=== PATIENT | male | born 1960 | race Caucasian/White ===

== ENCOUNTER → 2023-12-31 06:31 | Outpatient (REF) | payer BC, SELFPAY ==
[2023-12-31 07:43] LABS: ALT (SGPT) 23 U/L (0-50); AST (SGOT) 20 U/L (17-59); Albumin 4.2 g/dl (3.5-5.0); Alkaline Phosphatase 81 U/L (38-126); Blood Urea Nitrogen 20 mg/dl (9-20); Calcium 9.2 mg/dl (8.4-10.2); Carbon Dioxide 24 mmol/L (22-30); Chloride 108 mmol/L (98-107); Glucose 140 mg/dl (70-99); HDL Cholesterol 50 mg/dl; LDL Cholesterol, Calculated 71 mg/dl; Potassium 4.1 mmol/L (3.5-5.1); Sodium 138 mmol/L (135-145); Total Bilirubin 0.5 mg/dl (0.2-1.3); Total Cholesterol 144 mg/dl (50-199); Total Protein 7.1 g/dl (6.3-8.2); Triglyceride 115 mg/dl (10-149); Very Low Density Lipoprotein 23 mg/dl (0-30); eGFR > 60.00
[2023-12-31 07:53] LABS: Microalbumin, Random Urine 3.2 mg/dl (0.6-1.7)
[2023-12-31 09:27] LABS: Glycohemoglobin (HgbA1c) 7.5 % (4.0-5.6)
[2023-12-31 17:08] LABS: PSA, Total - Screen 5.68 ng/ml (0.0-4.0)
[2023-12-31 17:10] LABS: TSH 2.99 uIU/ml (0.47-4.68)
== END ==
LOC: REG 06:31
PROVIDERS: ATTENDING PHYSICIAN Family Medicine
DX: I25.10 Atherosclerotic heart disease of native coronary artery without angina pectoris (principal); I10 Essential (primary) hypertension; F98.8 Other specified behavioral and emotional disorders with onset usually occurring in childhood and adolescence; F51.01 Primary insomnia; G47.33 Obstructive sleep apnea (adult) (pediatric); Z99.89 Dependence on other enabling machines and devices; F13.20 Sedative, hypnotic or anxiolytic dependence, uncomplicated; F32.0 Major depressive disorder, single episode, mild; E11.69 Type 2 diabetes mellitus with other specified complication; E78.5 Hyperlipidemia, unspecified
CPT/HCPCS: 36415; 80053; 80061; 82043; 82570; 83036; 84443; G0103

== ENCOUNTER → 2024-01-10 06:52 | Outpatient (REF) | payer BC, SELFPAY | LOC: RAD 06:52 | PROVIDERS: ATTENDING PHYSICIAN Family Medicine | DX: R91.1 Solitary pulmonary nodule (principal) | CPT/HCPCS: 71250 ==

== ENCOUNTER → 2024-02-03 16:11 | Outpatient (REF) | payer BC, SELFPAY ==
[2024-02-03 20:05] LABS: PSA, Total - Screen 7.62 ng/ml (0.0-4.0)
== END ==
LOC: CLAB 16:11
PROVIDERS: ATTENDING PHYSICIAN Family Medicine
DX: R97.20 Elevated prostate specific antigen [PSA] (principal)
CPT/HCPCS: G0103

== ENCOUNTER → 2024-06-20 11:53 | Outpatient (REF) | payer BC, SELFPAY | LOC: MRI 3T 11:53 | PROVIDERS: ATTENDING PHYSICIAN Specialist; FAMILY PHYSICIAN Family Medicine | DX: R97.20 Elevated prostate specific antigen [PSA] (principal) | CPT/HCPCS: 72197; A9575 ==

== ENCOUNTER → 2024-06-27 16:47 | Outpatient (REF) | payer BC, SELFPAY | LOC: CLAB 16:47 | PROVIDERS: ATTENDING PHYSICIAN Specialist | DX: R97.20 Elevated prostate specific antigen [PSA] (principal) | CPT/HCPCS: 88305; 88344 ==

== ENCOUNTER 2024-07-26 06:10 | Day surgery (SDC) | payer BC, SELFPAY ==
[2024-07-17 08:46] LABS: Hematocrit 47.6 % (39.0-52.0); Hemoglobin 16.3 g/dL (13.0-18.0); Mean Corp Hgb Conc. 34.2 g/dL (33.0-37.0); Mean Corpuscular Hgb 30.1 pg (27.0-31.0); Mean Corpuscular Volume 87.8 fL (80.0-94.0); Platelet Count 258 10^3/uL (130-400); Red Blood Cell Count 5.42 10^6/uL (4.70-6.10); Red Cell Dist. Width 13.2 % (11.5-14.5)
[2024-07-17 08:54] LABS: INR 1.07; PT 13.7 Sec (11.4-14.6)
[2024-07-17 08:55] LABS: APTT 29.7 Sec (23.4-35.0)
[2024-07-17 09:12] LABS: Blood Urea Nitrogen 23 mg/dl (9-20); Calcium 9.4 mg/dl (8.4-10.2); Carbon Dioxide 26 mmol/L (22-30); Chloride 104 mmol/L (98-107); Glucose 120 mg/dl (70-99); Potassium 4.2 mmol/L (3.5-5.1); Sodium 143 mmol/L (135-145); eGFR > 60.00
[2024-07-17 09:43] VITALS: BMI 30.7
--- NOTE | 2024-07-17 16:10 | VNURNOTE ---
Patient is scheduled for robotic prostatectomy with Dr Good on 07/26. SDS, will stay overnight per patient. Mr. Clarke lives with his and has 2 dogs. Reviewed homebound status and pet policy. Patient verbalizes understanding. He reports
he has had a witt catheter in the past but it was removed prior to going home when he had cardiac surgery. Explained [facility] purpose, frequency. Patient selects [facility]. Referral placed in [facility].
[2024-07-26] VITALS (14 sets, daily range): BP systolic 105–149; BP diastolic 51–86; BMI 30.7
[2024-07-26 06:55] LABS: Glucose - Point of Care 165 mg/dl (70-99)
[2024-07-26] MEDS: NEOMYCIN ENEMA 1 BOTTLE RECTAL (06:55)
[2024-07-26] MEDS: NORMOSOL-R/PLASMALYTE-A 1000 IV ×2 (06:58→14:51)
[2024-07-26] MEDS: TYLENOL 1000 MG PO (07:12)
[2024-07-26 13:04] LABS: Glucose - Point of Care 186 mg/dl (70-99)
[2024-07-26] MEDS: NOVOLOG vial 1 UNITS SC (13:27)
--- NOTE | 2024-07-26 14:52 | PTCARENOTE ---
Pt arrived to [facility] from PACU s/p carla. prostatectomy. Pt has 5 incision sites, dressings C/D/I. Alston in place draining red punch colored urine. On 2L NC satting 97%. IVF infusing at 100mls/hr. Pt oriented to call vines and room, bed locked in
lowest position, call vines within reach.
[2024-07-26] MEDS: NOVOLOG FLEXPEN-LOW RESISTANCE SC (15:15)
[2024-07-26] MEDS: HYZAAR 100-12.5 TABLET PO (15:15)
[2024-07-26] MEDS: COLACE PO (15:15)
[2024-07-26] MEDS: POLYSPORIN/DOUBLE ANTIBIOTIC TOPICAL (15:15)
[2024-07-26] MEDS: MORPHINE SULFATE 4 MG IV ×2 (15:25→19:23)
[2024-07-26] MEDS: COLACE 100 MG PO (17:08)
[2024-07-26] MEDS: CYMBALTA DELAYED RELEASE 30 MG PO (17:08)
[2024-07-26] MEDS: ASPIRIN 325 MG PO (17:08)
[2024-07-26] MEDS: CRESTOR 40 MG PO (17:09)
[2024-07-26] MEDS: FARXIGA 10 MG PO (17:10)
[2024-07-26] MEDS: TORADOL 15 MG IV (17:10)
[2024-07-26 17:19] LABS: Glucose - Point of Care 171 mg/dl (70-99)
[2024-07-26] MEDS: NOVOLOG FLEXPEN-LOW RESISTANCE 1 UNITS SC (18:22)
[2024-07-26] MEDS: POLYSPORIN/DOUBLE ANTIBIOTIC 1 APPLIC TOPICAL (20:50)
[2024-07-26 22:24] LABS: Glucose - Point of Care 158 mg/dl (70-99)
[2024-07-26] MEDS: AMBIEN 10 MG PO (22:55)
[2024-07-27] MEDS: NORMOSOL-R/PLASMALYTE-A 1000 IV (00:01)
[2024-07-27] MEDS: TORADOL 15 MG IV ×2 (00:02→06:47)
[2024-07-27 04:00] VITALS: BP 146/81
[2024-07-27 06:26] LABS: Hematocrit 39.7 % (39.0-52.0); Hemoglobin 13.7 g/dL (13.0-18.0); Mean Corp Hgb Conc. 34.5 g/dL (33.0-37.0); Mean Corpuscular Hgb 29.5 pg (27.0-31.0); Mean Corpuscular Volume 85.4 fL (80.0-94.0); Mean Platelet Volume 10.2 fL (7.4-10.4); Platelet Count 259 10^3/uL (130-400); Red Blood Cell Count 4.65 10^6/uL (4.70-6.10); Red Cell Dist. Width 13.2 % (11.5-14.5); White Blood Cell Count 15.6 10^3/uL (4.8-10.8)
[2024-07-27 06:31] LABS: Blood Urea Nitrogen 19 mg/dl (9-20); Calcium 8.1 mg/dl (8.4-10.2); Carbon Dioxide 23 mmol/L (22-30); Chloride 103 mmol/L (98-107); Estimated Creatinine Clearance > 125 ml/min; Glucose 123 mg/dl (70-99); Potassium 3.9 mmol/L (3.5-5.1); Sodium 137 mmol/L (135-145); eGFR > 60.00
[2024-07-27 08:00] VITALS: BP 131/72
[2024-07-27] MEDS: ASPIRIN 325 MG PO (08:31)
[2024-07-27] MEDS: ZETIA 10 MG PO (08:32)
[2024-07-27] MEDS: NORVASC 10 MG PO (08:32)
[2024-07-27] MEDS: HYZAAR 100-12.5 TABLET 1 TAB PO (08:32)
[2024-07-27] MEDS: COLACE 100 MG PO (08:34)
[2024-07-27] MEDS: POLYSPORIN/DOUBLE ANTIBIOTIC 1 APPLIC TOPICAL (08:34)
[2024-07-27] MEDS: NOVOLOG FLEXPEN-LOW RESISTANCE 1 UNITS SC (08:35)
[2024-07-27 08:36] LABS: Glucose - Point of Care 176 mg/dl (70-99)
[2024-07-27] MEDS: COREG 12.5 MG PO (08:41)
[2024-07-27] MEDS: PERCOCET 5/325 1 TABLET PO (09:33)
--- NOTE | 2024-07-27 09:35 | W.PN.URO.CBU ---
Today's Communication / Plan
-
discharge
Assessment / Plan
-
stable
Diagnosis
-
Date of Service: July 27, 2024
-
Patient Diagnosis:
prostate cancer s/p robotic radical prostatectomy
Post Op Day: 1
Subjective
-
expected pelvic discomfort
Objective
-
Vital Signs
Temp Pulse Resp BP Pulse Ox
99.2 F 75 18 131/72 95
07/27/24 08:00 07/27/24 08:00 07/27/24 08:00 07/27/24 08:00 07/27/24 08:00
Intake and Output
07/26/24 07/27/24 07/28/24
06:59 06:59 06:59
Intake Total 3370 / 3370
Output Total 2500 / 2500
Balance 870 / 870
Intake:
Oral fluids 1920 / 1920
IV fluids (Total) 1450 / 1450
Normosol 250 / 250
Output:
Urine, Alston 2500 / 2500
Laboratory Results
07/27/24 04:24
07/27/24 04:24
Physical Exam
-
General - well developed, well nourished, no acute distress
Abdomen - soft, non-tender, positive bowel sounds, no distention
Genitalia - Alston with mir urine
Skin - warm & dry with no rash
Neuro - AOx3, no motor deficits
Extremities - no clubbing, no cyanosis, no edema
Dressings - clean, dry, intact
[2024-07-27 11:24] LABS: Glucose - Point of Care 137 mg/dl (70-99)
[2024-07-27] MEDS: NOVOLOG FLEXPEN-LOW RESISTANCE SC (11:24)
[2024-07-27 11:51] VITALS: BP 123/70
--- NOTE | 2024-07-27 12:39 | CM ---
Met with patient at the bedside; initial assessment and case management consult completed
Pharmacy verified: [facility] @ [id number] [facility]
Primary Contact verified: spouse, Fabiola Clarke
Patient and spouse live in a multilevel home; 1 step to enter; 10 steps to 2nd floor; railings present; powder room 1st floor; 2nd floor master bath has stall shower with grab bar
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
DME: [facility]
No SNF utilization history
will transport home
Agreeable to home health services for VN; agency options offered; preference [facility]; referral sent to [facility] liaison
Plan: Discharge to home today with home health services for VN with [facility]
[2024-07-27 14:16] LABS: Hepatitis C Antibody Negative (Negative)
== END 2024-07-27 12:53 | disposition home or self-care (01) ==
LOC: SDS 06:10
PROVIDERS: ATTENDING PHYSICIAN Specialist; FAMILY PHYSICIAN Family Medicine
DX: C61 Malignant neoplasm of prostate (principal)
CPT/HCPCS: 55866; 38571; 88305; 88307; 88309; 36415; 80048; 82962; 85027; 85610; 85730; 86803

== ENCOUNTER → 2024-08-07 11:14 | Outpatient (REF) | payer BC, SELFPAY | LOC: RAD 11:14 | PROVIDERS: ATTENDING PHYSICIAN Specialist; FAMILY PHYSICIAN Family Medicine | DX: C61 Malignant neoplasm of prostate (principal) | CPT/HCPCS: 51600; 74430; Q9967 ==

== ENCOUNTER → 2024-08-15 13:00 | Outpatient (REF) | payer BC, SELFPAY | LOC: RAD 13:00 | PROVIDERS: ATTENDING PHYSICIAN Specialist; FAMILY PHYSICIAN Family Medicine | DX: R32 Unspecified urinary incontinence (principal); C61 Malignant neoplasm of prostate | CPT/HCPCS: 51600; 74430; Q9967 ==

== ENCOUNTER → 2024-08-22 12:42 | Outpatient (REF) | payer BC, SELFPAY | LOC: RAD 12:42 | PROVIDERS: ATTENDING PHYSICIAN Specialist; FAMILY PHYSICIAN Family Medicine | DX: C61 Malignant neoplasm of prostate (principal); R32 Unspecified urinary incontinence | CPT/HCPCS: 51600; 74430; Q9967 ==

== ENCOUNTER → 2024-11-24 07:28 | Outpatient (REF) | payer BC, SELFPAY ==
[2024-11-24 08:26] LABS: Urine Albumin Negative (Neg - Trace); Urine Bilirubin Negative (Negative); Urine Character Clear (Clear); Urine Color Straw; Urine Glucose 3+ (Negative); Urine Ketone Negative (Negative); Urine Leukocyte Negative (Negative); Urine Nitrite Negative (Negative); Urine Occult Blood Negative (Negative); Urine Urobilinogen Negative (Neg - 1+)
== END ==
LOC: REG 07:28
PROVIDERS: ATTENDING PHYSICIAN Specialist; FAMILY PHYSICIAN Family Medicine
DX: N39.0 Urinary tract infection, site not specified (principal)
CPT/HCPCS: 81003; 87086

== ENCOUNTER → 2025-04-24 06:59 | Outpatient (REF) | payer BC, SELFPAY | LOC: RCS 06:59 | PROVIDERS: ATTENDING PHYSICIAN Internal Medicine Cardiovascular Disease; FAMILY PHYSICIAN Family Medicine | DX: I25.10 Atherosclerotic heart disease of native coronary artery without angina pectoris (principal); Z95.1 Presence of aortocoronary bypass graft; I77.9 Disorder of arteries and arterioles, unspecified | CPT/HCPCS: 93306 ==